=== PATIENT | female | born 1995 | race Caucasian/White ===

== ENCOUNTER 2017-03-13 06:53 | Emergency (ER) | payer SELFPAY ==
[~2017-03-13] VITALS: Ht 162.6 cm; Wt 74.8 kg
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
[2017-03-13 07:32] LABS: BILIRUBIN,URINE NEGATIVE (NEG); GLUCOSE,URINE NEGATIVE (NEG); NITRITE,URINE NEGATIVE (NEG); PH,URINE 5.5; PROTEIN,URINE 30 mg/dL (NEG-TRACE)
[2017-03-13 07:55] LABS: BASO % 1 % (0-3); EOS % 0 % (0-3); HEMATOCRIT 34.8 % (36.0-47.0); HEMOGLOBIN 11.5 g/dL (12.0-15.5); LYMPH # 1.6 x10^3/uL (1.0-4.8); LYMPH % 26 % (24-48); MEAN CORPUSCULAR HEMOGLOBIN 28 pg (25-35); MEAN CORPUSCULAR HGB CONC 33 g/dL (31-37); MEAN CORPUSCULAR VOLUME 84 fL (79-100); MONO % 10 % (0-9); NEUT % 63 % (31-73); PLATELET COUNT 228 x10^3/uL (140-400); RED BLOOD COUNT 4.15 x10^6/uL (3.50-5.40); RED CELL DISTRIBUTION WIDTH 14.6 % (11.5-14.5); WHITE BLOOD COUNT 6.1 x10^3/uL (4.0-11.0)
[2017-03-13 07:57] LABS: CALCIUM 8.6 mg/dL (8.5-10.1); CREATININE 0.5 mg/dL (0.6-1.0); GFR 158.9; POTASSIUM 3.5 mmol/L (3.5-5.1)
[2017-03-13 07:59] LABS: BACTERIA,URINE FEW /HPF (0-FEW); RBC,URINE 0 /HPF (0-2); SQUAMOUS EPITHELIAL CELL,UR MANY /LPF; WBC,URINE 0 /HPF (0-4)
[2017-03-13 08:02] LABS: ALBUMIN 3.6 g/dL (3.4-5.0); TOTAL BILIRUBIN 0.2 mg/dL (0.2-1.0); TOTAL PROTEIN 7.3 g/dL (6.4-8.2)
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
[2017-03-13 09:00] VITALS: BP 110/56
== END 2017-03-13 09:02 | disposition home or self-care (01) ==
LOC: ER 06:53
DX: O26.891 Other specified pregnancy related conditions, first trimester (principal); R10.9 Unspecified abdominal pain; Z3A.08 8 weeks gestation of pregnancy; Z91.010 Allergy to peanuts; Y08.89XA Assault by other specified means, initial encounter; Y93.89 Activity, other specified; Y99.8 Other external cause status; Y92.89 Other specified places as the place of occurrence of the external cause
CPT/HCPCS: 36415; 76801; 80053; 81001; 81025; 84702; 85025; 86900; 86901; 99285-25

== ENCOUNTER 2019-01-09 11:25 | Day surgery (SDC) | payer MEDICAID ==
[~2019-01-09 11:25] MED LIST: HYDROmorphone 2 MG/ML VIAL IV PRN; IV RINGERS,LACTATED 1000ML 1,000 ML IV SCH; LIDOCAINE 1% PF 2 ML VIAL. ID PRN; MORPHINE SULFATE 2 MG/ML VIAL. IV PRN; ONDANSETRON PF 4 MG/2 ML VIAL. IV PRN; OXYTOCIN 10 UNIT/ML VIAL. ONE; PROCHLORPERAZINE 10 MG/2 ML VIAL. IV PRN; fentaNYL PF VIAL 100 MCG/2 ML VIAL IV PRN; miSOPROStol 200 MCG TABLET ONE
[2019-01-09] MEDS ORDERED: PROPOFOL 20 ML IV ONE (12:10)
[2019-01-09] MEDS ORDERED: FAMOTIDINE 20 MG/2 ML VIAL ONE (12:10)
[2019-01-09] MEDS ORDERED: LIDOCAINE 2% PF 5 ML VIAL. ONE (12:10)
[2019-01-09] MEDS ORDERED: ONDANSETRON PF 4 MG/2 ML VIAL. ONE (12:10)
[2019-01-09] MEDS ORDERED: MIDAZOLAM HCL/PF 2 MG/2 ML VIAL. ONE (12:12)
[2019-01-09] MEDS ORDERED: fentaNYL PF VIAL 100 MCG/2 ML VIAL ONE (12:12)
[2019-01-09] MEDS ORDERED: OXYTOCIN 10 UNIT/ML VIAL. ONE ×2 (13:02)
[2019-01-09] MEDS ORDERED: SEVOFLURANE 31 TO 60 MINUTES. IH ONE (13:06)
--- NOTE | 2019-01-09 13:06 | PDOC ---
BRIEF OPERATIVE NOTE Date: Jan 09, 2019 Pre-Op Diagnosis Incomplete Ab Post-Op Diagnosis Same Procedure Performed Suction D and C Surgeon May [employer] none Anesthesia Type: General Blood Loss 100cc Specimens Obtained POC Findings Dictated Complications None BEATRIZ GÓMEZ MD Jan 09, 2019 13:06
[2019-01-09] MEDS ORDERED: NAPR-514 PO (13:09)
[2019-01-09] MEDS ORDERED: METH0.2T36 PO (13:09)
[2019-01-09] MEDS ORDERED: HYDR-3164 PO (13:09)
[2019-01-09] MEDS ORDERED: DOXY100C2 PO (13:09)
--- NOTE | 2019-01-09 14:05 | OP ---
DATE OF SURGERY: 01/09/2019 PREOPERATIVE DIAGNOSIS: Incomplete . POSTOPERATIVE DIAGNOSIS: Incomplete . PROCEDURES: 1. Suction dilatation and curettage. 2. Exam under anesthesia. SURGEON: Adiel Olvera MD MEDICATION TECH: None. ANESTHESIA: Mask airway. ESTIMATED BLOOD LOSS: 100 mL. SPECIMENS: Products of conception. COMPLICATIONS: None. CONDITION: Stable. DESCRIPTION OF PROCEDURE: After risks, benefits, indications, alternatives, and expectations were discussed in detail with the patient, the patient was brought to OR theater, and placed in dorsal lithotomy position in Denys stirrups. After adequate general anesthesia, the patient was prepped and draped in usual sterile manner. Exam under anesthesia was performed. Uterus was anteflexed, approximately 8 weeks' size, consistent with . Posterior weighted speculum was placed. Cervix grasped with single-tooth tenaculum. Hegar dilators were used to dilate the cervix up to #9. An #8 curved suction cannula was placed through the cervical os. Gentle suction curettage was performed in all quadrants. Products of conception were seen going through clear tubing. Sharp curettage was then performed in all quadrants until the usual cry was heard. Suction cannula was once again placed. No further products of conception was seen. Procedure was terminated. Single tooth tenaculum was removed. Puncture sites were hemostatic. Posterior weighted speculum was removed. Vaginal vault was wiped free of any tissue or blood. Sponge, needle and instrument counts were correct x 2 per nursing staff. The patient went to postoperative Anesthesia Recovery in stable condition. ADIEL OLVERA MD DR: MARSHA/osmel JOB#: [id number] / [id number]
[2019-01-09 14:12] VITALS: BP 132/79
--- NOTE | 2019-01-12 18:06 | PATHOLOGY ---
[facility] Accession Number: [id number] . 01 Material submitted: . product of conception - PRODUCTS OF CONCEPTION . 01 Clinical history: . Incomplete miscarriage. . 02 Diagnosis: Uterine contents, suction D and C: - Products of conception comprised of few minute segments of tissues, immature chorionic villi focally containing nucleated red blood cells and showing focal mild hydropic degenerative changes, and segments of decidual tissue and secretory endometrium. (JPM:nehemias; 01/12/2019) MBR/01/12/2019 . 02 Electronically signed: . Stalin Pennington MD, Pathologist NPI- [id number] . 01 Gross description: . Received in formalin labeled "Brown, Marj, products of conception" is a 54 g, 8.2 x 0.8 x 2.5 cm aggregate of cook-brown friable soft tissue and red-brown clotted blood. No parts are identified. [employer] tissue is submitted in cassettes A1-A3. ([facility]; 01/11/2019) SYC/SYC . 02 Pathologist provided ICD-10: O03.9 . 02 CPT . 850225 Specimen Comment: A courtesy copy of this report has been sent to Specimen Comment: [phone]. Specimen Comment: Report sent to Performed at: 01 [facility] [address], [place] [id number] MD Sam Strauss MD Phone: [phone] Performed at: 02 [facility] [address] [place], [place] [id number] MD Stalin Pennington MD Phone: [phone]
== END 2019-01-09 14:35 | disposition home or self-care (01) ==
LOC: SURG 11:25
PROVIDERS: ATTEND Specialist
DX: O03.4 Incomplete spontaneous abortion without complication (principal)
CPT/HCPCS: 36415; 59812; 86850; 86900; 86901; 88305; A7015; J2250; J2405; J2590; J2704; J3010; J3490; J2001